=== PATIENT | male | born 2000 | race Caucasian/White ===

== ENCOUNTER 2021-07-02 08:52 | Outpatient (CLI) | payer BC, SELFPAY ==
[2021-07-02 09:08] VITALS: BP 115/82; PULSE 80; RESP 17; TEMP 36.8; O2SAT 98; BMI 28.7
[2021-07-02 10:12] VITALS: BP 125/95; PULSE 80; RESP 17; TEMP 36.8; O2SAT 98
[2021-07-02 10:59] VITALS: BP 101/68; PULSE 79; RESP 17; TEMP 36.8; O2SAT 99
[2021-07-02 11:02] VITALS: BP 101/68; PULSE 79; RESP 17; TEMP 36.8; O2SAT 99
== END 2021-07-02 08:53 | disposition home or self-care (01) ==
LOC: OPS 08:56
PROVIDERS: Visit Provider Nurse Practitioner Family
DX: U07.1 COVID-19 (principal)
CPT/HCPCS: 96365